=== PATIENT | male | born 1935 | race Caucasian/White ===

== ENCOUNTER → 2016-10-25 | Outpatient (CLI) | payer OTHER, MEDICARE ==
[2016-10-25 14:21] LABS: BASOPHILS # (AUTO) 0.02 10*3/UL; BASOPHILS % (AUTO) 0.4 % (0-1); EOSINOPHILS % (AUTO) 4.4 % (0-8); HEMATOCRIT 40.6 % (42.0-52.0); HEMOGLOBIN 13.9 g/dL (14.0-18.0); IMM GRAN % (AUTO) 0.2 % (0-5); IMM GRAN# (AUTO) 0.01 10*3/UL; LYMPHOCYTES # (AUTO) 1.19 10*3/uL; LYMPHOCYTES % (AUTO) 22.6 % (10-50); MEAN CORPUSCULAR HEMOGLOBIN 31.9 PG (27-31); MEAN CORPUSCULAR HGB CONC 34.2 g/dL (33-37); MEAN PLATELET VOLUME 10.5 FL (7.4-12.2); MONOCYTES # (AUTO) 0.43 10*3/UL (0.3-0.8); MONOCYTES % (AUTO) 8.2 % (5-15); NEUTROPHILS # (AUTO) 3.39 10*3/UL; NEUTROPHILS % (AUTO) 64.2 % (50-80); RED BLOOD COUNT 4.36 10^6/uL (4.70-6.10); WHITE BLOOD COUNT 5.27 10^3/uL (4.8-10.8)
[2016-10-25 14:23] LABS: PLATELET MORPHOLOGY COMMENT NORMAL MORPHOLOGY (NORM)
[2016-10-25 14:31] LABS: ASPARTATE AMINO TRANSFERASE 24 IU/L (21-57); BILIRUBIN,TOTAL 0.9 mg/dL (0.3-1.2); BLOOD UREA NITROGEN 30 mg/dL (7-22); BUN/CREATININE RATIO 15.78 (6-20); CALCIUM 10.6 mg/dL (8.7-10.7); CHLORIDE 101 meq/L (98-112); CREATININE 1.9 mg/dL (0.70-1.50); GLUCOSE 93 mg/dL (78-110); HDL CHOLESTEROL 36 mg/dL (40-150); POTASSIUM 4.5 meq/L (3.8-5.2); SODIUM 141 meq/L (135-145); TOTAL PROTEIN 7.6 g/dL (6.1-8.0); TRIGLYCERIDES 77 mg/dL (44-200)
== END ==
LOC: LAB 14:04
PROVIDERS: ATTEND Internal Medicine
DX: I12.9 Hypertensive chronic kidney disease with stage 1 through stage 4 chronic kidney disease, or unspecified chronic kidney disease (principal); N18.3 Chronic kidney disease, stage 3 (moderate); E79.0 Hyperuricemia without signs of inflammatory arthritis and tophaceous disease; E78.5 Hyperlipidemia, unspecified; Z12.5 Encounter for screening for malignant neoplasm of prostate
CPT/HCPCS: 36415; 80053; 80061; 82550; 84443; 84550; 85025; G0103

== ENCOUNTER → 2017-01-27 | Outpatient (CLI) | payer OTHER, MEDICARE ==
[2017-01-27 10:19] LABS: BASOPHILS # (AUTO) 0.04 10*3/UL; EOSINOPHILS # (AUTO) 0.21 10*3/UL; HEMATOCRIT 42.3 % (42.0-52.0); HEMOGLOBIN 13.9 g/dL (14.0-18.0); LYMPHOCYTES # (AUTO) 0.88 10*3/uL; MEAN CORPUSCULAR HEMOGLOBIN 30.5 PG (27-31); MEAN CORPUSCULAR HGB CONC 32.9 g/dL (33-37); MEAN PLATELET VOLUME 10.8 FL (7.4-12.2); MONOCYTES # (AUTO) 0.42 10*3/UL (0.3-0.8); NEUTROPHILS # (AUTO) 2.65 10*3/UL; RED BLOOD COUNT 4.55 10^6/uL (4.70-6.10)
[2017-01-27 10:37] LABS: PLATELET MORPHOLOGY COMMENT NORMAL MORPHOLOGY (NORM); RBC MORPHOLOGY COMMENT NORMAL MORPHOLOGY (NORM); WBC MORPHOLOGY COMMENT NORMAL MORPHOLOGY (NORM)
[2017-01-27 10:48] LABS: BLOOD UREA NITROGEN 31 mg/dL (7-22); BUN/CREATININE RATIO 17.22 (6-20); CALCIUM 10.6 mg/dL (8.7-10.7)
== END ==
LOC: MOB LAB 09:21
PROVIDERS: ATTEND Internal Medicine
DX: I12.9 Hypertensive chronic kidney disease with stage 1 through stage 4 chronic kidney disease, or unspecified chronic kidney disease (principal); N18.3 Chronic kidney disease, stage 3 (moderate)
CPT/HCPCS: 36415; 80053; 85025; 99214; G0463

== ENCOUNTER 2019-09-01 02:25 | Observation (INO) ==
[2019-09-01] MEDS ORDERED: Sodium Chloride 0.9% 1,000 ML PRIMARY IV ONE ×2 (02:44→04:43)
[2019-09-01 03:30] LABS: BASOPHILS # (AUTO) 0.02 10*3/UL; BASOPHILS % (AUTO) 0.2 % (0-1); EOSINOPHILS # (AUTO) 0.02 10*3/UL; EOSINOPHILS % (AUTO) 0.2 % (0-8); Hematocrit [HCT] 44.3 % (42.0-52.0); Hemoglobin [HGB] 14.5 g/dL (14.0-18.0); LYMPHOCYTES # (AUTO) 0.42 10*3/uL; MEAN CORPUSCULAR HGB CONC 32.7 g/dL (33-37); MEAN CORPUSCULAR VOLUME 93.1 FL (80-90); MEAN PLATELET VOLUME 10.8 FL (7.4-12.2); MONOCYTES # (AUTO) 0.29 10*3/UL (0.3-0.8); MONOCYTES % (AUTO) 3.2 % (5-15); NEUTROPHILS # (AUTO) 8.28 10*3/UL; NEUTROPHILS % (AUTO) 90.8 % (50-80); RED BLOOD COUNT 4.76 10^6/uL (4.70-6.10)
[2019-09-01 03:34] LABS: PLATELET MORPHOLOGY COMMENT NORMAL MORPHOLOGY (NORM); RBC MORPHOLOGY COMMENT NORMAL MORPHOLOGY (NORM); WBC MORPHOLOGY COMMENT NORMAL MORPHOLOGY (NORM)
[2019-09-01 03:45] LABS: BUN/CREATININE RATIO 16.08 (6-20)
[2019-09-01] MEDS ORDERED: Magnesium Sulfate 2gm (Premix) 2 GM/50 ML BAG IV ONE (04:43)
[2019-09-01] MEDS ORDERED: LIDOCAINE W/ SODIUM BICARB 0.5 ML SYR SUBD PRN (04:43)
[2019-09-01] MEDS ORDERED: LIDOCAINE HCL 2 % 10 ML JELLY URO-JECT TOPICAL PRN (04:43)
[2019-09-01] MEDS ORDERED: ACETAMINOPHEN WITH CODEINE 300 MG/30 MG TABLET PO PRN (04:43)
[2019-09-01] MEDS: Sodium Chloride 0.9% 1,000 ML PRIMARY IV SCH ×3 (06:34→19:41)
[2019-09-01] MEDS: Metoprolol TARTRATE Tab 50 MG TAB PO SCH ×2 (08:28→20:33)
[2019-09-01] MEDS: Terazosin Cap 5 MG CAP PO SCH (08:31)
[2019-09-01] MEDS: ATORVASTATIN 20 MG TABLET PO SCH (20:37)
[2019-09-02] MEDS: Sodium Chloride 0.9% 1,000 ML PRIMARY IV SCH ×2 (04:11→19:28)
[2019-09-02 04:37] LABS: BASOPHILS # (AUTO) 0.02 10*3/UL; BASOPHILS % (AUTO) 0.3 % (0-1); Hematocrit [HCT] 35.7 % (42.0-52.0); Hemoglobin [HGB] 11.9 g/dL (14.0-18.0); LYMPHOCYTES # (AUTO) 1.01 10*3/uL; MEAN CORPUSCULAR HGB CONC 33.3 g/dL (33-37); MEAN CORPUSCULAR VOLUME 91.3 FL (80-90); MEAN PLATELET VOLUME 11.4 FL (7.4-12.2); MONOCYTES # (AUTO) 0.53 10*3/UL (0.3-0.8); NEUTROPHILS # (AUTO) 4.84 10*3/UL; NEUTROPHILS % (AUTO) 73.2 % (50-80); RED BLOOD COUNT 3.91 10^6/uL (4.70-6.10)
[2019-09-02 04:40] LABS: PLATELET MORPHOLOGY COMMENT NORMAL MORPHOLOGY (NORM); RBC MORPHOLOGY COMMENT NORMAL MORPHOLOGY (NORM); WBC MORPHOLOGY COMMENT NORMAL MORPHOLOGY (NORM)
[2019-09-02 04:47] LABS: SERUM ALBUMIN 2.7 g/dL (3.5-4.8)
[2019-09-02] MEDS: Terazosin Cap 5 MG CAP PO SCH (08:31)
[2019-09-02] MEDS: Metoprolol TARTRATE Tab 50 MG TAB PO SCH ×2 (08:32→20:14)
[2019-09-02] MEDS: ATORVASTATIN 20 MG TABLET PO SCH (20:14)
[2019-09-03 05:12] LABS: BUN/CREATININE RATIO 21.36 (6-20); SERUM ALBUMIN 2.7 g/dL (3.5-4.8)
[2019-09-03] MEDS: Terazosin Cap 5 MG CAP PO SCH (08:10)
[2019-09-03] MEDS: Metoprolol TARTRATE Tab 50 MG TAB PO SCH ×2 (08:11→20:19)
[2019-09-03] MEDS: ATORVASTATIN 20 MG TABLET PO SCH (20:19)
[2019-09-04 07:35] VITALS: O2SAT 93
[2019-09-04] MEDS: Terazosin Cap 5 MG CAP PO SCH (08:20)
[2019-09-04] MEDS: Metoprolol TARTRATE Tab 50 MG TAB PO SCH (08:20)
[2019-09-04 12:07] VITALS: BP 112/63; RESP 16; TEMP 97
== END 2019-09-04 15:22 | disposition home or self-care (01) ==
LOC: MED/SURG 02:25 → ER 02:25 → MED/SURG 04:50
PROVIDERS: ADMIT Internal Medicine; ATTEND Internal Medicine